=== PATIENT | male | born 1980 | race Caucasian/White ===

== ENCOUNTER 2017-02-18 20:58 | Emergency (ER) | payer OTHER ==
[~2017-02-18] VITALS: Ht 182.9 cm; Wt 99.0 kg
[2017-02-18 21:00] VITALS: BP 146/70; PULSE 82; RESP 16; TEMP 98.3; O2SAT 98
[2017-02-18] MEDS ORDERED: CUTI0.05 TOPICAL (21:41)
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
[2017-02-18] MEDS ORDERED: diphenhydrAMINE HCL 50 MG CAP PO ONE (21:45)
[2017-02-18] MEDS ORDERED: predniSONE 20 MG TAB PO ONE (21:45)
== END 2017-02-18 22:30 | disposition home or self-care (01) ==
LOC: NEPK 20:58
DX: S80.862A Insect bite (nonvenomous), left lower leg, initial encounter (principal); L53.9 Erythematous condition, unspecified; Z87.09 Personal history of other diseases of the respiratory system; Z87.39 Personal history of other diseases of the musculoskeletal system and connective tissue; W57.XXXA Bitten or stung by nonvenomous insect and other nonvenomous arthropods, initial encounter
CPT/HCPCS: 99283; J7512; Q0163